=== PATIENT | female | born 1990 | race Two or more races ===

== ENCOUNTER 2024-07-20 10:22 | Emergency (ER) | payer OTHER ==
[~2024-07-20] VITALS: Ht 167.6 cm; Wt 61.2 kg
[2024-07-20] MEDS ORDERED: IBUPROFEN 600 MG TABLET ONE (10:53)
[2024-07-20] MEDS: IBUPROFEN 600 MG TABLET PO ONE (10:56)
[2024-07-20 13:46] VITALS: BP 104/69; TEMP 98.4; O2SAT 99
== END 2024-07-20 13:47 | disposition home or self-care (01) ==
LOC: ER 10:29
DX: R07.89 Other chest pain (principal)
CPT/HCPCS: 71045-TC